=== PATIENT | female | born 1970 | race Caucasian/White ===

== ENCOUNTER 2018-06-28 14:02 | Observation (INO) | payer BC, OTHER ==
[2018-06-28] MEDS ORDERED: KETOROLAC TROMETHAMINE INJ/PF 30 MG/1 ML SDV IV ONE (15:36)
[2018-06-28] MEDS ORDERED: NORMAL SALINE 1000 ML 1,000 ML IV ONE (15:36)
[2018-06-28] MEDS ORDERED: ONDANSETRON HCL INJ/PF 4 MG/2 ML SDV IV ONE (15:37)
--- NOTE | 2018-06-28 15:38 | ER Document Report ---
ED Medical Screen (RME) - General Chief Complaint: Abdominal Pain Stated Complaint: ABDOMINAL PAIN Time Seen by Provider: 06/28/18 15:32 TRAVEL OUTSIDE OF THE [place] IN LAST 30 DAYS: No - HPI Notes: 06/28/18 15:37 Patient is a 48-year-old female that presents to the emergency department for chief complaint of abdominal pain. Patient felt nauseated and had some mild abdominal discomfort yesterday. Her pain became more severe today. She states it is epigastric and radiates to her right upper and and left upper quadrant. She has associated nausea with no vomiting. She denies fevers and diarrhea. ROS: GENERAL: Denies fever of chills GI: Abdominal pain, nausea CV: Denies chest pain PHYSICAL EXAMINATION: GENERAL: Appears uncomfortable in mild distress HEAD: Atraumatic, normocephalic. EYES: Pupils equal round extraocular movements intact, conjunctiva are normal. ENT: Nares patent NECK: Normal range of motion LUNGS: No respiratory distress Musculoskeletal: Normal range of motion NEUROLOGICAL: Normal speech, normal gait. PSYCH: Normal mood, normal affect. MDM: Patient seen and examined for rapid initial assessment. Vital signs reviewed. A comprehensive ED assessment and evaluation of the patient, analysis of test results and completion of the medical decision making process will be conducted by additional ED providers. - Related Data Allergies/Adverse Reactions: No Known Allergies Allergy (Verified 06/28/18 14:09) Past Medical History Renal/ Medical History: Reports: Hx Kidney Stones. Denies: Hx Peritoneal Dialysis Musculoskeltal Medical History: Reports Hx Muscle Spasm, Reports Hx Musculoskeletal Deformity Past Surgical History: Reports: Hx Section, Hx Oral Surgery - jaw surgery, Hx Tonsillectomy - Immunizations Hx Diphtheria, Pertussis, Tetanus Vaccination: Yes Physical Exam - Vital signs Vitals: Temp Pulse Resp BP Pulse Ox 98.1 F 96 20 154/113 H 96 06/28/18 14:21 06/28/18 14:21 06/28/18 14:21 06/28/18 14:21 06/28/18 14:21 Course - Vital Signs Vital signs: Temp Pulse Resp BP Pulse Ox 98.1 F 96 20 154/113 H 96 06/28/18 14:21 06/28/18 14:21 06/28/18 14:21 06/28/18 14:21 06/28/18 14:21
--- NOTE | 2018-06-28 16:04 | ER Document Report ---
ED GI/ - General Mode of Arrival: Ambulatory Information source: Patient TRAVEL OUTSIDE OF THE [place] IN LAST 30 DAYS: No <PATRIC HANSON - Last Filed: 06/28/18 16:50> <JOSE RODRIGUEZ - Last Filed: 06/28/18 18:53> - General Chief Complaint: Abdominal Pain Stated Complaint: ABDOMINAL PAIN Time Seen by Provider: 06/28/18 15:32 Notes: 48 year old female that presents to the emergency department today with complaints of abdominal pain which began today and increased around 1130 prior to arrival. Patient states she felt nauseated for the last two days but did not develop the pain until today. Patient still has some nausea now. Patient states prior to arrival the pain "shot up to her ribs". Patient states it hurts to breathe. (PATRIC HANSON) - Related Data Allergies/Adverse Reactions: No Known Allergies Allergy (Verified 06/28/18 14:09) Past Medical History - General Information source: Patient - Social History Smoking Status: Never Smoker Cigarette use (# per day): No Frequency of alcohol use: None Drug Abuse: None Lives with: Family Family History: Reviewed & Not Pertinent Patient has suicidal ideation: No Patient has homicidal ideation: No Renal/ Medical History: Reports: Hx Kidney Stones Musculoskeletal Medical History: Reports Hx Muscle Spasm, Reports Hx Musculoskeletal Deformity Past Surgical History: Reports: Hx Section, Hx Oral Surgery - jaw surgery, Hx Tonsillectomy - Immunizations Hx Diphtheria, Pertussis, Tetanus Vaccination: Yes <PATRIC HANSON - Last Filed: 06/28/18 16:50> Review of Systems - Review of Systems Constitutional: No symptoms reported EENT: No symptoms reported Cardiovascular: No symptoms reported Respiratory: No symptoms reported Gastrointestinal: See HPI, Abdominal pain, Nausea Genitourinary: No symptoms reported Female Genitourinary: No symptoms reported Musculoskeletal: No symptoms reported Skin: No symptoms reported Hematologic/Lymphatic: No symptoms reported Neurological/Psychological: No symptoms reported -: Yes All other systems reviewed and negative <PATRIC HANSON - Last Filed: 06/28/18 16:50> Physical Exam <PATRIC HANSON - Last Filed: 06/28/18 16:50> <JOSE RODRIGUEZ - Last Filed: 06/28/18 18:53> - Vital signs Vitals: Temp Pulse Resp BP Pulse Ox 98.1 F 96 20 154/113 H 96 06/28/18 14:21 06/28/18 14:21 06/28/18 14:21 06/28/18 14:21 06/28/18 14:21 - Notes Notes: Physical Exam: General: Alert, appears well. HEENT: Normocephalic. Atraumatic. PERRL. Extraocular movements intact. Oropharynx clear. Neck: Supple. Non-tender. Respiratory: No respiratory distress. Clear and equal breath sounds bilaterally. Cardiovascular: Regular rate and rhythm. Abdominal: Obese. Soft, diffuse tenderness with palpation over the RUQ, LUQ, and LLQ. No distension. Normal Bowel Sounds. Back: Non-tender. No deformity or step off. Extremities: Moves all four extremities. Upper extremities: Normal inspection. Normal ROM. Lower extremities: Normal inspection. No edema. Normal ROM. Neurological: Normal cognition. AAOx4. Normal speech. Psychological: Normal affect. Normal Mood. Skin: Warm. Dry. Normal color. (PATRIC HANSON) Course - Laboratory Result Diagrams: 06/28/18 15:53 06/28/18 15:53 <PATRIC HANSON - Last Filed: 06/28/18 16:50> - Laboratory Result Diagrams: 06/28/18 15:53 06/28/18 15:53 - Diagnostic Test Radiology reviewed: Image reviewed - Gallbladder wall 4 mm, trace free fluid in posterior liver region, stones and sludge seen. <JOSE RODRIGUEZ - Last Filed: 06/28/18 18:53> - Vital Signs Vital signs: Temp Pulse Resp BP Pulse Ox 98.1 F 96 20 154/113 H 96 06/28/18 14:21 06/28/18 14:21 06/28/18 14:21 06/28/18 14:21 06/28/18 14:21 - Laboratory Laboratory results interpreted by me: 06/28/18 06/28/18 06/28/18 15:53 15:53 15:53 RDW 15.2 H Glucose 112 H Total Bilirubin 2.6 H Direct Bilirubin 2.0 H AST 160 H ALT 165 H Alkaline Phosphatase 195 H Urine Protein 30 H Urine Ketones TRACE H Urine Bilirubin SMALL H Urine Urobilinogen 4.0 H Discharge <PATRIC HANSON - Last Filed: 06/28/18 16:50> - Discharge Admitting Provider: Surgicalist Unit Admitted: Surgical Floor <JOSE RODRIGUEZ - Last Filed: 06/28/18 18:53> - Discharge Clinical Impression: Cholelithiasis Qualifiers: Cholelithiasis location: gallbladder Cholecystitis presence: without cholecystitis Biliary obstruction: without biliary obstruction Qualified Code(s) : K80.20 - Calculus of gallbladder without cholecystitis without obstruction Condition: Stable Disposition: ADMITTED INPATIENT Scribe Attestation: 06/28/18 17:48 I personally performed the services described in the documentation, reviewed and edited the documentation which was dictated to the scribe in my presence, and it accurately records my words and actions. (JOSE RODRIGUEZ) Scribe Documentation - Scribe Written by Tristen:: Tristen Thompson, 06/28/2018 1703 acting as scribe for :: Merry <PATRIC HANSON - Last Filed: 06/28/18 16:50>
[2018-06-28 16:12] LABS: ABSOLUTE EOSINOPHILS # (AUTO) 0.2 10^3/uL (0.0-0.6); ABSOLUTE LYMPHOCYTES (AUTO) 2.3 10^3/uL (0.5-4.7); ABSOLUTE MONOCYTES (AUTO) 0.5 10^3/uL (0.1-1.4); ABSOLUTE NEUT (AUTO) 5.4 10^3/uL (1.7-8.2); APPEARANCE,URINE SLIGHTLY-CLOUDY; BASOPHILS % (AUTO) 0.5 % (0-2); BILIRUBIN,URINE SMALL (NEGATIVE); CALCIUM OXALATE CRYSTALS,URINE MODERATE /HPF; GLUCOSE, URINE NEGATIVE (NEGATIVE); HEMATOCRIT 43.6 % (36.0-47.0); HEMOGLOBIN 14.7 g/dL (12.0-15.5); KETONES,URINE TRACE mg/dL (NEGATIVE); LEUKOCYTE ESTERASE,URINE NEGATIVE (NEGATIVE); LYMPHOCYTES % (AUTO) 27.6 % (13-45); MEAN CORPUSCULAR HEMOGLOBIN 28.2 pg (27.0-33.4); MEAN CORPUSCULAR HGB CONC 33.8 g/dL (32.0-36.0); MEAN CORPUSCULAR VOLUME 84 fl (80-97); MONOCYTES % (AUTO) 6.1 % (3-13); NITRITE,URINE NEGATIVE (NEGATIVE); PLATELET COUNT 300 10^3/uL (150-450); PROTEIN,URINE 30 mg/dL (NEGATIVE); RED BLOOD COUNT 5.22 10^6/uL (3.72-5.28); RED CELL DISTRIBUTION WIDTH 15.2 % (11.5-14.0); SEGMENTED NEUTROPHILS % (AUTO) 63.8 % (42-78); TOTAL CELLS COUNTED % (AUTO) 100 %; WHITE BLOOD COUNT 8.5 10^3/uL (4.0-10.5)
[2018-06-28 16:13] LABS: COLOR,URINE YELLOW
[2018-06-28] MEDS ORDERED: DIPHENHYDRAMINE HCL 50 MG/ML VIAL IV ONE (16:13)
[2018-06-28] MEDS ORDERED: FENTANYL CITRATE INJ/PF 100 MCG/2 ML AMPUL IV ONE (16:14)
[2018-06-28 16:30] LABS: ALANINE AMINOTRANSFERASE 165 U/L (9-52); ALBUMIN 4.5 g/dL (3.5-5.0); ALKALINE PHOSPHATASE 195 U/L (38-126); ANION GAP 13 (5-19); ASPARTATE AMINO TRANSFERASE 160 U/L (14-36); BILIRUBIN,TOTAL 2.6 mg/dL (0.2-1.3); BLOOD UREA NITROGEN 11 mg/dL (7-20); CALCIUM 9.6 mg/dL (8.4-10.2); CARBON DIOXIDE 27 mmol/L (22-30); CHLORIDE 103 mmol/L (98-107); GLUCOSE 112 mg/dL (75-110); LIPASE 164.1 U/L (23-300); SODIUM 142.9 mmol/L (137-145); TOTAL PROTEIN 7.7 g/dL (6.3-8.2)
--- NOTE | 2018-06-28 18:54 | RADIOLOGY REPORT (SQ) ---
EXAM DESCRIPTION: U/S ABDOMEN LIMITED W/O DOP COMPLETED DATE/TIME: 06/28/2018 6:32 pm REASON FOR STUDY: Upper abdominal pain, elevated LFTs and bilirubin COMPARISON: None. TECHNIQUE: Dynamic and static grayscale images acquired of the abdomen and recorded on PACS. Concepciono faheem selected color Doppler and spectral images recorded. LIMITATIONS: None. FINDINGS: PANCREAS: No masses. No peripancreatic edema or fluid collections. LIVER: Echotexture is coarse with increased echogenicity consistent with fatty infiltration. LIVER VASCULATURE: Normal directional flow of the main portal vein and hepatic veins. GALLBLADDER: Stones and sludge. Normal wall thickness. No pericholecystic fluid. ULTRASOUND-DETECTED LEBLANC'S SIGN: Negative. INTRAHEPATIC DUCTS AND COMMON DUCT: CBD and intrahepatic ducts normal caliber. No filling defects. INFERIOR VENA CAVA: Normal flow. AORTA: No aneurysm. RIGHT KIDNEY: Normal size. Normal echogenicity. No solid or suspicious masses. No hydronephros is. No calcifications. PERITONEAL AND RIGHT PLEURAL SPACE: Trace free fluid posterior to the liver. No significant ascites or effusions. OTHER: No other significant finding. IMPRESSION: STONES AND SLUDGE IN THE GALLBLADDER. FATTY INFILTRATION OF THE LIVER. TRACE FREE FLUI D. TECHNICAL DOCUMENTATION: JOB ID: [id number] [employer]- All Rights Reserved Reading location - IP/workstation name: [email or web address]
[2018-06-28] MEDS ORDERED: ONDANSETRON HCL INJ/PF 4 MG/2 ML SDV IV PRN (19:07)
[2018-06-28] MEDS ORDERED: DEXTROSE 40% GEL 15 GM TUBE PO PRN ×2 (19:07)
[2018-06-28] MEDS ORDERED: GLUCAGON,HUMAN RECOMB 1 MG INJ SUBCUT PRN (19:07)
[2018-06-28] MEDS ORDERED: DEXTROSE 50%-WATER 25 GM/50 ML DISP.SYRIN IV PRN ×2 (19:07)
--- NOTE | 2018-06-28 19:07 | PDOC H&P ---
History of Present Illness Admission Date/PCP: 06/28/18 18:43 Patient complains of: abdominal pains History of Present Illness: CARMEN WEEMS is a 48 year old female who ate greasy food 2 days ago associated with vague abdominal discomfort. Yesterday developed upper abdominal pains radiating to the back associated with nausea. Also noted urine highly colored. Today pains got worse and went to ED. [place] US of abdomen which shoed cholelithiasis and acute cholecystitis. Denies fever or chills but would feel cold then will have feeling of warmth. No diarrhea nor constipation. Past Surgical History Past Surgical History: Reports: Section, Tonsillectomy Social History Lives with: Family Smoking Status: Never Smoker Family History Family History: Reviewed & Not Pertinent Parental Family History Reviewed: Yes - Mother had cholecystectomy Children Family History Reviewed: No Sibling(s) Family History Reviewed.: No Medication/Allergy Home Medications: Desog-Et Estra/Ethin Estra [Mircette 28 Day Tablet] 1 each PO DAILY 12/06/11 Diazepam [Valium 5 mg Tablet] 5 mg PO TIDP PRN #20 tablet 08/05/14 Hydrocodone/Acetaminophen [Vicodin 5-300 mg Tablet] 1 - 2 tab PO ASDIR PRN #15 tab 08/05/14 Meloxicam [Mobic 7.5 Mg Tablet] 7.5 mg PO BID #60 tablet 08/05/14 Methocarbamol [Robaxin 750 mg Tablet] 750 mg PO ASDIR PRN #40 tablet 08/05/14 Allergies/Adverse Reactions: No Known Allergies Allergy (Verified 06/28/18 14:09) Review of Systems Constitutional: PRESENT: as per HPI Eyes: PRESENT: other - no visual/hearing changes Cardiovascular: PRESENT: other - no chest pains/cough Gastrointestinal: PRESENT: abdominal pain, nausea Genitourinary: PRESENT: other - no dysuria Neurological: PRESENT: other - no seizures Physical Exam Vital Signs: Temp Pulse Resp BP Pulse Ox 98.1 F 96 20 154/113 H 96 06/28/18 14:21 06/28/18 14:21 06/28/18 14:21 06/28/18 14:21 06/28/18 14:21 General appearance: PRESENT: mild distress Head exam: PRESENT: atraumatic Eye exam: PRESENT: conjunctiva pink Mouth exam: PRESENT: moist Neck exam: PRESENT: full ROM Respiratory exam: PRESENT: clear to auscultation dilma Cardiovascular exam: PRESENT: RRR Pulses: PRESENT: normal radial pulses Vascular exam: PRESENT: normal capillary refill GI/Abdominal exam: PRESENT: Webb's sign, soft, tenderness - Epigastric and RUQ Rectal exam: PRESENT: deferred Extremities exam: PRESENT: full ROM Musculoskeletal exam: PRESENT: ambulatory Neurological exam: PRESENT: alert, oriented to person, oriented to place, oriented to time, oriented to situation Psychiatric exam: PRESENT: appropriate affect Skin exam: PRESENT: normal color, warm Results Impressions: Abdomen Ultrasound 06/28/18 16:35 IMPRESSION: STONES AND SLUDGE IN THE GALLBLADDER. FATTY INFILTRATION OF THE LIVER. TRACE FREE FLUID. Assessment & Plan - Diagnosis (1) Acute cholecystitis Is this a current diagnosis for this admission?: Yes - Time Time Spent: 30 to 50 Minutes - Inpatient Certification Medical Necessity: Need for Pain Control, Need for IV Antibiotics, Need for Surgery - Plan Summary Plan Summary: IV antibiotics Bowel rest Repeat labs in am Possible croat[place] arash with intraoperative cholangiogram
[2018-06-28] MEDS ORDERED: PIPERACILLIN/TAZOBACTAM 3.375 GM VIAL IV SCH (19:15)
[2018-06-28] MEDS ORDERED: KETOROLAC TROMETHAMINE INJ/PF 30 MG/1 ML SDV IV PRN (19:30)
[2018-06-28] MEDS: PIPERACILLIN SODIUM/TAZOBACTAM 3.375 GM in NORMAL SALINE 100 ML IV SCH (22:33)
[2018-06-29] MEDS: PIPERACILLIN SODIUM/TAZOBACTAM 3.375 GM in NORMAL SALINE 100 ML IV SCH ×4 (04:41→21:28)
[2018-06-29 06:29] LABS: ABSOLUTE BASOPHILS # (AUTO) 0.1 10^3/uL (0.0-0.2); ABSOLUTE EOSINOPHILS # (AUTO) 0.2 10^3/uL (0.0-0.6); ABSOLUTE LYMPHOCYTES (AUTO) 2.2 10^3/uL (0.5-4.7); ABSOLUTE MONOCYTES (AUTO) 0.4 10^3/uL (0.1-1.4); ABSOLUTE NEUT (AUTO) 2.9 10^3/uL (1.7-8.2); EOSINOPHILS % (AUTO) 3.7 % (0-6); HEMATOCRIT 40.9 % (36.0-47.0); HEMOGLOBIN 13.6 g/dL (12.0-15.5); LYMPHOCYTES % (AUTO) 37.9 % (13-45); MEAN CORPUSCULAR HEMOGLOBIN 27.6 pg (27.0-33.4); MEAN CORPUSCULAR HGB CONC 33.3 g/dL (32.0-36.0); MEAN CORPUSCULAR VOLUME 83 fl (80-97); MONOCYTES % (AUTO) 6.9 % (3-13); PLATELET COUNT 241 10^3/uL (150-450); RED BLOOD COUNT 4.94 10^6/uL (3.72-5.28); RED CELL DISTRIBUTION WIDTH 15.2 % (11.5-14.0); SEGMENTED NEUTROPHILS % (AUTO) 50.5 % (42-78); TOTAL CELLS COUNTED % (AUTO) 100 %; WHITE BLOOD COUNT 5.8 10^3/uL (4.0-10.5)
[2018-06-29 06:55] LABS: ALANINE AMINOTRANSFERASE 134 U/L (9-52); ALBUMIN 3.5 g/dL (3.5-5.0); ALKALINE PHOSPHATASE 158 U/L (38-126); ANION GAP 11 (5-19); ASPARTATE AMINO TRANSFERASE 127 U/L (14-36); BILIRUBIN,DIRECT 2.3 mg/dL (0.0-0.4); BILIRUBIN,TOTAL 3.1 mg/dL (0.2-1.3); BLOOD UREA NITROGEN 8 mg/dL (7-20); CALCIUM 8.8 mg/dL (8.4-10.2); CARBON DIOXIDE 24 mmol/L (22-30); CHLORIDE 108 mmol/L (98-107); GLUCOSE 105 mg/dL (75-110); LIPASE 91.7 U/L (23-300); POTASSIUM 4.1 mmol/L (3.6-5.0); SODIUM 143.4 mmol/L (137-145); TOTAL PROTEIN 6.3 g/dL (6.3-8.2)
[2018-06-29] MEDS: DEXTROSE 5%-LACTATED RINGERS 1,000 ML IV PRN ×2 (09:17→21:30)
--- NOTE | 2018-06-29 11:15 | PDOC PROGRESS REPORT ---
Subjective Progress Note for:: 06/29/18 Subjective:: This a 48-year-old female with acute cholecystitis. Patient reports pain in the right upper quadrant. He denies chest pain, shortness of breath, fevers, chills. She does report intermittent nausea. Denies malaise or fatigue. Reason For Visit: ACUTE CHOLECYSTITIS, CHOLELITHIASIS Physical Exam Vital Signs: Temp Pulse Resp BP Pulse Ox 98.3 F 67 16 116/78 99 06/29/18 07:46 06/29/18 07:46 06/29/18 07:46 06/29/18 07:46 06/29/18 07:46 Intake & Output 06/28/18 06/29/18 06/30/18 06:59 06:59 06:59 Intake Total 100 200 Balance 100 200 Weight 85.2 kg General appearance: PRESENT: no acute distress Head exam: PRESENT: atraumatic, normocephalic Eye exam: PRESENT: EOMI, PERRLA. ABSENT: scleral icterus Mouth exam: PRESENT: moist, neck supple Neck exam: ABSENT: meningismus, tenderness, thyromegaly, tracheal deviation Pulses: PRESENT: normal radial pulses Vascular exam: PRESENT: normal capillary refill. ABSENT: pallor GI/Abdominal exam: PRESENT: Webb's sign, soft, tenderness. ABSENT: hernia Rectal exam: PRESENT: deferred Extremities exam: ABSENT: clubbing Neurological exam: PRESENT: alert, awake, oriented to person, oriented to place , oriented to time, oriented to situation, CN II-XII grossly intact. ABSENT: motor sensory deficit Psychiatric exam: ABSENT: agitated, anxious, depressed Focused psych exam: ABSENT: delusional Skin exam: ABSENT: cyanosis, erythema, jaundice Results Laboratory Results: 06/29/18 05:48 06/29/18 05:48 06/29/18 06/29/18 05:48 05:48 WBC 5.8 RBC 4.94 Hgb 13.6 Hct 40.9 MCV 83 MCH 27.6 MCHC 33.3 RDW 15.2 H Plt Count 241 Seg Neutrophils % 50.5 Lymphocytes % 37.9 Monocytes % 6.9 Eosinophils % 3.7 Basophils % 1.0 Absolute Neutrophils 2.9 Absolute Lymphocytes 2.2 Absolute Monocytes 0.4 Absolute Eosinophils 0.2 Absolute Basophils 0.1 Sodium 143.4 Potassium 4.1 Chloride 108 H Carbon Dioxide 24 Anion Gap 11 BUN 8 Creatinine 0.72 Est GFR ( Amer) > 60 Est GFR (Non-Af Amer) > 60 Glucose 105 Calcium 8.8 Total Bilirubin 3.1 H AST 127 H ALT 134 H Alkaline Phosphatase 158 H Total Protein 6.3 Albumin 3.5 Lipase 91.7 Impressions: Abdomen Ultrasound 06/28/18 16:35 IMPRESSION: STONES AND SLUDGE IN THE GALLBLADDER. FATTY INFILTRATION OF THE LIVER. TRACE FREE FLUID. Assessment & Plan - Diagnosis (1) Acute cholecystitis Is this a current diagnosis for this admission?: Yes - Plan Summary Plan Summary: There is a 48-year-old female with acute cholecystitis. She has slight elevation of her LFTs this morning. Plan is for laparoscopic cholecystectomy with intraoperative cholangiogram today. Risks/benefits discussed, informed consent obtained, and all questions answered.
[2018-06-29] MEDS ORDERED: HYDROMORPHONE HCL INJ/PF 2 MG/ML AMPULE ONE (13:36)
[2018-06-29] MEDS ORDERED: FENTANYL CITRATE INJ/PF 250 MCG/5 ML AMPULE ONE (13:36)
[2018-06-29] MEDS ORDERED: MIDAZOLAM 2 MG/2 ML INJ ONE (13:36)
[2018-06-29] MEDS ORDERED: PROPOFOL INJ 200 MG/20 ML VIAL IV ONE (13:37)
[2018-06-29] MEDS ORDERED: ACETAMINOPHEN 1,000 MG/100 ML RTUPB IV ONE (13:37)
[2018-06-29] MEDS ORDERED: BUPIVACAINE HCL 0.25 % INJ/PF (2.5 MG/1 ML) 30 ML VIAL ONE (14:02)
[2018-06-29] MEDS ORDERED: ONDANSETRON HCL INJ/PF 4 MG/2 ML SDV ONE (14:04)
[2018-06-29] MEDS ORDERED: DEXAMETHASONE SOD PHOSPHATE INJ 4 MG/1 ML VIAL ONE (14:04)
[2018-06-29] MEDS ORDERED: NEOSTIGMINE METHYLSULFATE 10 MG/10 ML VIAL ONE (14:04)
[2018-06-29] MEDS ORDERED: KETOROLAC TROMETHAMINE 60 MG/2 ML SDV ONE (14:04)
[2018-06-29] MEDS ORDERED: GLYCOPYRROLATE 1 MG/5 ML SYRINGE ONE (14:04)
[2018-06-29] MEDS ORDERED: DIPHENHYDRAMINE HCL 50 MG/ML VIAL IV PRN (14:52)
[2018-06-29] MEDS ORDERED: FENTANYL CITRATE INJ/PF 100 MCG/2 ML AMPUL IV PRN ×3 (14:52)
[2018-06-29] MEDS ORDERED: PROMETHAZINE HCL INJ 25 MG/1 ML VIAL IV PRN (14:52)
[2018-06-29] MEDS ORDERED: MEPERIDINE HCL/PF INJ 25 MG/1 ML DISP.SYRIN IV PRN (14:52)
[2018-06-29] MEDS ORDERED: MORPHINE SULFATE 10 MG/ML INJ IV PRN ×2 (14:52→16:36)
--- NOTE | 2018-06-29 15:59 | RADIOLOGY REPORT (SQ) ---
EXAM DESCRIPTION: NO CHG FLUORO; CHOLANGIOGRAM OPERATIVE COMPLETED DATE/TIME: 06/29/2018 3:49 pm REASON FOR STUDY: CHOLANGIOGRAM IN OR COMPARISON: None. FLUOROSCOPY TIME: 0.8 minutes. 3 images saved to PACS. TECHNIQUE: Cinegraphic images were obtained from an intraoperative cholangiogram. LIMITATIONS: None. FINDINGS: There is opacification of the bile ducts and cystic duct remnant without evidence of fixed filling defect or significant extravasation. Contrast not visualized in the adjacent duodenum. IMPRESSION: INTRAOPERATIVE CHOLANGIOGRAM. COMMENT: Quality ID 145: Final reports for procedures using fluoroscopy that document radiation exp osure indices, or exposure time and number of fluorographic images (if radiation exposure indices are not available) TECHNICAL DOCUMENTATION: JOB ID: [id number] [employer]- All Rights Reserved Reading location - IP/workstation name: [email or web address]
--- NOTE | 2018-06-29 15:59 | RADIOLOGY REPORT (SQ) ---
EXAM DESCRIPTION: NO CHG FLUORO; CHOLANGIOGRAM OPERATIVE COMPLETED DATE/TIME: 06/29/2018 3:49 pm REASON FOR STUDY: CHOLANGIOGRAM IN OR COMPARISON: None. FLUOROSCOPY TIME: 0.8 minutes. 3 images saved to PACS. TECHNIQUE: Cinegraphic images were obtained from an intraoperative cholangiogram. LIMITATIONS: None. FINDINGS: There is opacification of the bile ducts and cystic duct remnant without evidence of fixed filling defect or significant extravasation. Contrast not visualized in the adjacent duodenum. IMPRESSION: INTRAOPERATIVE CHOLANGIOGRAM. COMMENT: Quality ID 145: Final reports for procedures using fluoroscopy that document radiation exp osure indices, or exposure time and number of fluorographic images (if radiation exposure indices are not available) TECHNICAL DOCUMENTATION: JOB ID: [id number] [employer]- All Rights Reserved Reading location - IP/workstation name: [email or web address]
--- NOTE | 2018-06-29 18:42 | Operative Report ---
Nonrecallable Operative Report DATE OF SURGERY: 06/29/18 PREOPERATIVE DIAGNOSIS: Cholecystitis POSTOPERATIVE DIAGNOSIS: 1. Acute cholecystitis. 2. Gallstone impacted in the distal common bile duct OPERATION: Laparoscopic cholecystectomy with intraoperative cholangiogram SURGEON: LEXI LÓPEZ 1ST THERMODYNAMIC PHYSICIST: IZABELLA WEAVER ANESTHESIA: GA TISSUE REMOVED OR ALTERED: Gallbladder COMPLICATIONS: None apparent ESTIMATED BLOOD LOSS: Minimal PROCEDURE: Drains/implants: None. Procedure in detail: After informed consent was obtained, the patient was brought to the operating room and laid in the supine position. The area of the abdomen was prepped and draped in a normal sterile fashion. A supraumbilical incision was created with a 15 blade scalpel. Dissection was carried through the subcutaneous tissue using blunt dissection. The cicatrix was identified, grasped with a Kurtis clamp, retracted upwards. The linea alba fascia was incised sharply. The abdomen was entered sharply. The balloon trocar was inserted, and pneumoperitoneum was achieved. A subxiphoid 5 mm port was placed under direct laparoscopic visualization. 2 more 5 mm ports were placed in the right upper quadrant in similar fashion. Atraumatic graspers were placed through the 5 mm ports. The gallbladder was retracted cephalad and laterally. The gallbladder was found to be very tense and distended. Secondary to this a cyst aspiration needle was used to aspirate a large amount of bile from the distended gallbladder. Dissection was then begun in the triangle of Calot. The cystic duct and cystic artery were fully visualized and skeletonized, seeing the liver through the triangle. Once the critical view of safety was obtained, the cystic artery was clipped and cut with laparoscopic instruments. The cystic duct was found to be very dilated. The cystic duct was opened very close to the infundibulum and an Arrow cholangiogram catheter was slid into the cystic duct. A cholangiogram was then shot. The cholangiogram noted two stones. One was floating in the common bile duct, and one appeared to be impacted at the ampulla. A balloon sweep was performed with the Arrow cholangiogram catheter and the floating stone was extracted. The impacted stone at the distal common bile duct could not be dislodged. Once this was confirmed, the Arrow cholangiogram catheter was removed from the bile duct. The cystic duct was amputated. The cystic duct was dilated, therefore a PDS Endoloop was used to secure the cystic duct. Once this was completed, the gallbladder was removed from the liver using Bovie electrocautery. The gallbladder was then placed into an Endo Catch bag and pulled out through the umbilicus. The hilum was then inspected. The hilum appeared to be free of any leakage of blood or bile. The abdomen was copiously irrigated and suctioned until the effluent was clear. The 5 mm trochars were removed. The 12 mm trocar was removed, and pneumoperitoneum was relieved. The supraumbilical fascia was closed using 0 Vicryl suture in [id number] fashion. The overlying skin was closed using 4-0 Vicryl Rapide suture in subcuticular fashion. All sponge, instrument, and needle counts were correct x2. Condition: Stable. Izabella Weaver PA-C was scrubbed and present the entirety of the procedure. She assisted with all portions of the procedure including placement of the trochars, manipulation of the gallbladder, performing of the cholangiogram, removal of the gallbladder, closure of the fascia, and closure of the skin.
--- NOTE | 2018-06-29 21:54 | PDOC DISCHARGE SUMMARY ---
General - Admit/Disc Date/PCP Admission Date/Primary Care Provider: 06/28/18 18:43 Discharge Date: 06/29/18 - Transfer to [facility] - Discharge Diagnosis (1) Acute cholecystitis Is this a current diagnosis for this admission?: Yes - Additional Information Resuscitation Status: Full Code Discharge Diet: Other (Comments) - N.p.o. Discharge Activity: No Lifting Over 10 Pounds Home Medications: Norethindrone-E.estradiol-Iron [Junel Fe 1 mg-20 Mcg Tablet] 1 tab PO DAILY 06/05 History of Present Illness History of Present Illness: CARMEN WEEMS is a 48 year old female admitted with cholecystitis. The patient was taken to the operating room for definitive surgical care. Hospital Course Hospital Course: The patient was taken to the operating room on 06/29/2018 for laparoscopic cholecystectomy with cholangiogram. The cholangiogram showed 2 stones in the common bile duct. One stone was able to be swept out via laparoscopic methods. The other stone appeared to be impacted at the ampulla. The cholecystectomy was completed successfully. After surgery was completed, transferred to a tertiary care center was arranged. Dr. Akosua Funk at [facility] graciously accepted the patient in transfer. Transfer to higher level of care for ERCP. Physical Exam Vital Signs: Temp Pulse Resp BP Pulse Ox 98.0 F 72 16 125/74 96 06/29/18 20:27 06/29/18 20:27 06/29/18 20:27 06/29/18 20:27 06/29/18 20:27 Intake & Output 06/28/18 06/29/18 06/30/18 06:59 06:59 06:59 Intake Total 100 3200 Output Total 510 Balance 100 2690 Weight 85.2 kg Results Laboratory Results: 06/29/18 05:48 06/29/18 05:48 06/29/18 06/29/18 05:48 05:48 WBC 5.8 RBC 4.94 Hgb 13.6 Hct 40.9 MCV 83 MCH 27.6 MCHC 33.3 RDW 15.2 H Plt Count 241 Seg Neutrophils % 50.5 Lymphocytes % 37.9 Monocytes % 6.9 Eosinophils % 3.7 Basophils % 1.0 Absolute Neutrophils 2.9 Absolute Lymphocytes 2.2 Absolute Monocytes 0.4 Absolute Eosinophils 0.2 Absolute Basophils 0.1 Sodium 143.4 Potassium 4.1 Chloride 108 H Carbon Dioxide 24 Anion Gap 11 BUN 8 Creatinine 0.72 Est GFR ( Amer) > 60 Est GFR (Non-Af Amer) > 60 Glucose 105 Calcium 8.8 Total Bilirubin 3.1 H AST 127 H ALT 134 H Alkaline Phosphatase 158 H Total Protein 6.3 Albumin 3.5 Lipase 91.7 Impressions: Abdomen Ultrasound 06/28/18 16:35 IMPRESSION: STONES AND SLUDGE IN THE GALLBLADDER. FATTY INFILTRATION OF THE LIVER. TRACE FREE FLUID. Cholangiogram 06/29/18 00:00 IMPRESSION: INTRAOPERATIVE CHOLANGIOGRAM. Fluoroscopy 06/29/18 00:00 IMPRESSION: INTRAOPERATIVE CHOLANGIOGRAM. Qualifiers - * PATIENT BEING DISCHARGED WITH ANY OF THE FOLLOWING DIAGNOSIS: No Plan Discharge Plan: Transfer to [facility] for ERCP. Time Spent: Less than 30 Minutes
[2018-06-30] MEDS: PIPERACILLIN SODIUM/TAZOBACTAM 3.375 GM in NORMAL SALINE 100 ML IV SCH (02:14)
[2018-06-30 02:56] VITALS: BP 140/85
== END 2018-06-30 03:46 | disposition short-term general hospital (02) ==
LOC: ER 14:02 → INTOOBSV 18:43 → EH 18:43 → 5 21:59 → 2N 06-29 06:08
PROVIDERS: ATTEND Surgery
PROC: BF101ZZ Fluoroscopy of Bile Ducts using Low Osmolar Contrast (ICD-10-PCS; 2018-06-29)
PROC: 0FT44ZZ Resection of Gallbladder, Percutaneous Endoscopic Approach (ICD-10-PCS; principal; 2018-06-29 14:15)
DX: K80.64 Calculus of gallbladder and bile duct with chronic cholecystitis without obstruction (principal); E66.9 Obesity, unspecified; Z87.442 Personal history of urinary calculi; Z79.899 Other long term (current) drug therapy
CPT/HCPCS: 99285; 96361; 96374; 96375; 36415 ×2; 83690 ×2; 85025 ×2; 80053 ×2; 81001; 88304 ×2; 74300; 76705; 47563; Q9967; J2250; J1100; J1200; J1885 ×3; J3010 ×2; J2270; J2405 ×2; J7030; J2704; J2543 ×3; J0131; J3490; 790; G0378; J1170